=== PATIENT | male | born 1955 | race African-American/Black ===

== ENCOUNTER 2022-11-14 05:21 | Inpatient (IN) | payer MEDICAID ==
[~2022-11-14] VITALS: Ht 188 cm; Wt 75.5 kg
[2022-11-14 06:17] LABS: HEMATOCRIT. 32.6 % (42.0-52.0); HEMOGLOBIN. 10.6 g/dL (14.0-18.0); MEAN CORPUSCULAR VOLUME 86.5 fL (80.0-94.0); MEAN PLATELET VOLUME 6.9 fl (7.4-10.4); PLATELET 696 x1000/uL (130-400); RED BLOOD CELL COUNT 3.77 mill/uL (4.7-6.1); RED CELL DISTRIBUTION WIDTH 20.8 % (11.6-14.6)
[2022-11-14 06:24] LABS: CHLORIDE 103 mEq/L (98-107)
[2022-11-14] MEDS ORDERED: ASPIRIN 81MG TABLET PO ONE (07:45)
[2022-11-14] MEDS ORDERED: FUROSEMIDE 40MG/4ML VIAL IV ONE (07:45)
[2022-11-14 08:53] LABS: PLATELET ESTIMATE INCREASED
[2022-11-14] MEDS ORDERED: CLONIDINE 0.1MG TABLET PO PRN (15:15)
[2022-11-14] MEDS ORDERED: HYDROCODONE/ACETAMINOPHEN 5/325MG TABLET PO PRN (15:15)
[2022-11-14] MEDS ORDERED: ONDANSETRON HCL 4MG/2ML INJ IV PRN (15:15)
[2022-11-14] MEDS ORDERED: ACETAMINOPHEN 325MG TABLET PO PRN ×2 (15:15)
[2022-11-14] MEDS ORDERED: SODIUM CHLORIDE 0.9% 1,000 ML IV SCH (15:15)
[2022-11-14] MEDS ORDERED: MORPHINE SULFATE 2 MG/ML CPJ (NOT FOR IM USE) IV PRN (15:15)
[2022-11-14] MEDS ORDERED: GUAIFENESIN 200MG/10ML SUGAR FREE UDC PO PRN (15:15)
[2022-11-14] MEDS ORDERED: NALOXONE HCL 0.4MG/ML VIAL IV PRN (15:30)
[2022-11-14] MEDS ORDERED: PIPERACILLIN/TAZ 3.375G PREMIX 50 ML IV NR (15:30)
[2022-11-14] MEDS: ENOXAPARIN 40MG/0.4ML SYR SUBCUT SCH (15:50)
[2022-11-14] MEDS ORDERED: CARVEDILOL 12.5MG TABLET PO NR (16:00)
[2022-11-14] MEDS ORDERED: VANCOMYCIN 1,750 MG in DEXT 5% WATER 500 ML IV SCH (17:00)
[2022-11-14 17:12] LABS: T4 FREE 1.46 ng/dL (0.76-1.46)
[2022-11-14] MEDS ORDERED: IPRATROPIUM BROMIDE (0.02%) 0.5MG/2.5ML NEB HHN NR (17:30)
[2022-11-14 19:41] LABS: VITAMIN B12 SERUM 1934 pg/mL (211-911)
[2022-11-14] MEDS: IPRATROPIUM/ALBUTEROL 0.5-3(2.5)MG/3ML NEB HHN PRN (20:57)
[2022-11-14] MEDS ORDERED: FUROSEMIDE 40MG TABLET PO SCH (21:00)
[2022-11-14] MEDS: ATORVASTATIN CALCIUM 40MG TABLET PO SCH (21:18)
[2022-11-14] MEDS: FAMOTIDINE 20MG TABLET PO SCH (21:18)
[2022-11-14] MEDS ORDERED: PIPERACILLIN/TAZOBACTAM 3.375 G in DEXTROSE 5% WATER 50 ML IV SCH (22:00)
[2022-11-14 22:42] LABS: CLARITY URINE CLEAR (CLEAR); COLOR URINE DARK YELLOW (YELLOW); KETONES URINE TRACE (NEGATIVE); LEUKOCYTE ESTERASE URINE NEGATIVE (NEGATIVE); NITRITE URINE NEGATIVE (NEGATIVE); OCCULT BLOOD URINE NEGATIVE (NEGATIVE); PH URINE 6.5 (4.5-8.0); PROTEIN URINE 1+ (NEGATIVE); SPECIFIC GRAVITY URINE 1.034 (1.005-1.030)
[2022-11-14 23:04] LABS: *AMPHETAMINES SCREEN URINE NEGATIVE (NEGATIVE); *BARBITURATES SCREEN URINE NEGATIVE (NEGATIVE); *BENZODIAZEPINES SCREEN URINE NEGATIVE (NEGATIVE); *COCAINE SCREEN URINE NEGATIVE (NEGATIVE); CANNABINOID URINE SCREEN PRESUMTIVE POSITIVE (NEGATIVE); METHADONE URINE SCREEN NEGATIVE (NEGATIVE); OPIATES URINE SCREEN NEGATIVE (NEGATIVE); PHENCYCLIDINE URINE SCREEN NEGATIVE (NEGATIVE)
[2022-11-15 02:00] VITALS: BP 104/72
[2022-11-15] MEDS ORDERED: VANCOMYCIN 750MG PREMIX 150 ML IV SCH (03:00)
[2022-11-15] MEDS: IPRATROPIUM/ALBUTEROL 0.5-3(2.5)MG/3ML NEB HHN PRN (05:13)
[2022-11-15] MEDS: FUROSEMIDE 40MG/4ML VIAL IVP SCH ×2 (07:02→16:19)
[2022-11-15 07:37] LABS: HEMATOCRIT. 30.9 % (42.0-52.0); HEMOGLOBIN. 9.8 g/dL (14.0-18.0); MEAN CORPUSCULAR HEMOGLOBIN 28.1 pg (28.0-32.0); MEAN CORPUSCULAR VOLUME 88.4 fL (80.0-94.0); MEAN PLATELET VOLUME 7.6 fl (7.4-10.4); PLATELET 660 x1000/uL (130-400); RED BLOOD CELL COUNT 3.49 mill/uL (4.7-6.1); RED CELL DISTRIBUTION WIDTH 21.3 % (11.6-14.6)
[2022-11-15 08:00] VITALS: BP 112/82
[2022-11-15 08:19] LABS: CHLORIDE 103 mEq/L (98-107)
[2022-11-15 08:43] VITALS: BP 112/82
[2022-11-15] MEDS ORDERED: ASPIRIN 81MG EC TABLET PO SCH (09:00)
[2022-11-15] MEDS ORDERED: IOHEXOL-350 100 ML BOTTLE ONE (09:13)
[2022-11-15 10:59] LABS: PLATELET ESTIMATE INCREASED
[2022-11-15] MEDS ORDERED: CLOPIDOGREL 75MG TABLET PO SCH (11:45)
[2022-11-15 11:49] VITALS: BP 102/64
[2022-11-15] MEDS: CEFTRIAXONE 1,000 MG in DEXTROSE 5% WATER 50 ML IV SCH (13:03)
[2022-11-15] MEDS: AZITHROMYCIN 500 MG in DEXT 5% WATER 250 ML IV SCH (13:03)
[2022-11-15] MEDS: DILTIAZEM HCL 30MG TABLET PO SCH ×2 (13:04→21:31)
[2022-11-15] MEDS: ENOXAPARIN 40MG/0.4ML SYR SUBCUT SCH (15:14)
[2022-11-15 15:57] VITALS: BP 98/79
[2022-11-15 20:00] VITALS: BP 103/74
[2022-11-15] MEDS: FAMOTIDINE 20MG TABLET PO SCH (21:30)
[2022-11-15] MEDS: ATORVASTATIN CALCIUM 40MG TABLET PO SCH (21:30)
[2022-11-16] VITALS: BP 115/60
[2022-11-16] MEDS: IPRATROPIUM/ALBUTEROL 0.5-3(2.5)MG/3ML NEB HHN PRN (04:21)
[2022-11-16 04:30] VITALS: BP 119/81
[2022-11-16] MEDS: DILTIAZEM HCL 30MG TABLET PO SCH ×3 (06:00→21:49)
[2022-11-16 06:06] LABS: HEMOGLOBIN. 9.8 g/dL (14.0-18.0); MEAN CORPUSCULAR HEMOGLOBIN 28.4 pg (28.0-32.0); MEAN CORPUSCULAR VOLUME 86.8 fL (80.0-94.0); MEAN PLATELET VOLUME 7.8 fl (7.4-10.4); PLATELET 736 x1000/uL (130-400); RED BLOOD CELL COUNT 3.46 mill/uL (4.7-6.1); RED CELL DISTRIBUTION WIDTH 21.7 % (11.6-14.6)
[2022-11-16] MEDS: FUROSEMIDE 40MG/4ML VIAL IVP SCH ×2 (06:21→16:28)
[2022-11-16 08:00] VITALS: BP 106/82
[2022-11-16 09:27] LABS: CHLORIDE 105 mEq/L (98-107)
[2022-11-16] MEDS: AZITHROMYCIN 500 MG in DEXT 5% WATER 250 ML IV SCH (11:32)
[2022-11-16 12:00] VITALS: BP 103/73
[2022-11-16] MEDS: CEFTRIAXONE 1,000 MG in DEXTROSE 5% WATER 50 ML IV SCH (12:54)
[2022-11-16 16:00] VITALS: BP 113/79
[2022-11-16 19:49] LABS: PLATELET ESTIMATE INCREASED
[2022-11-16 20:00] VITALS: BP 128/60
[2022-11-16] MEDS: FAMOTIDINE 20MG TABLET PO SCH (21:49)
[2022-11-16] MEDS: ATORVASTATIN CALCIUM 40MG TABLET PO SCH (21:49)
[2022-11-17] VITALS: BP 119/60
[2022-11-17 04:00] VITALS: BP 107/72
[2022-11-17] MEDS: DILTIAZEM HCL 30MG TABLET PO SCH ×3 (05:42→21:11)
[2022-11-17 07:27] LABS: HEMATOCRIT. 31.9 % (42.0-52.0); HEMOGLOBIN. 10.5 g/dL (14.0-18.0); MEAN CORPUSCULAR HEMOGLOBIN 28.8 pg (28.0-32.0); MEAN CORPUSCULAR VOLUME 87.5 fL (80.0-94.0); MEAN PLATELET VOLUME 8.2 fl (7.4-10.4); PLATELET 787 x1000/uL (130-400); RED BLOOD CELL COUNT 3.65 mill/uL (4.7-6.1); RED CELL DISTRIBUTION WIDTH 21.7 % (11.6-14.6)
[2022-11-17 07:43] LABS: CHLORIDE 103 mEq/L (98-107)
[2022-11-17 07:48] VITALS: BP 139/76
[2022-11-17] MEDS: FUROSEMIDE 40MG/4ML VIAL IVP SCH ×2 (09:14→16:53)
[2022-11-17] MEDS: IPRATROPIUM/ALBUTEROL 0.5-3(2.5)MG/3ML NEB HHN PRN (10:28)
[2022-11-17 11:35] VITALS: BP 121/90
[2022-11-17] MEDS: AZITHROMYCIN 500 MG in DEXT 5% WATER 250 ML IV SCH (12:03)
[2022-11-17] MEDS: CEFTRIAXONE 1,000 MG in DEXTROSE 5% WATER 50 ML IV SCH (12:03)
[2022-11-17 16:03] VITALS: BP 139/85
[2022-11-17] MEDS ORDERED: ZOLPIDEM TARTRATE 5MG TABLET PO PRN (16:15)
[2022-11-17 17:06] LABS: PLATELET ESTIMATE INCREASED
[2022-11-17 20:00] VITALS: BP 101/76
[2022-11-17] MEDS: FAMOTIDINE 20MG TABLET PO SCH (20:43)
[2022-11-17] MEDS: ATORVASTATIN CALCIUM 40MG TABLET PO SCH (20:43)
[2022-11-18] VITALS: BP 114/79
[2022-11-18] MEDS: IPRATROPIUM/ALBUTEROL 0.5-3(2.5)MG/3ML NEB HHN SCH ×2 (02:10→16:38)
[2022-11-18 04:00] VITALS: BP 102/78
[2022-11-18] MEDS: IPRATROPIUM/ALBUTEROL 0.5-3(2.5)MG/3ML NEB HHN PRN (05:10)
[2022-11-18] MEDS: DILTIAZEM HCL 30MG TABLET PO SCH ×4 (05:35→21:32)
[2022-11-18 06:56] LABS: INR 1.2
[2022-11-18 07:05] LABS: HEMATOCRIT. 30.9 % (42.0-52.0); MEAN CORPUSCULAR HEMOGLOBIN 28.4 pg (28.0-32.0); MEAN PLATELET VOLUME 8.3 fl (7.4-10.4); PLATELET 793 x1000/uL (130-400); RED BLOOD CELL COUNT 3.51 mill/uL (4.7-6.1); RED CELL DISTRIBUTION WIDTH 21.4 % (11.6-14.6)
[2022-11-18 07:24] LABS: CHLORIDE 102 mEq/L (98-107)
[2022-11-18 08:00] VITALS: BP 110/68
[2022-11-18] MEDS: FUROSEMIDE 40MG/4ML VIAL IVP SCH ×2 (09:42→17:15)
[2022-11-18] MEDS ORDERED: SODIUM BICARBONATE 4% (2.4MEQ) 5ML VIAL IV ONE (09:54)
[2022-11-18 11:37] LABS: PLATELET ESTIMATE INCREASED
[2022-11-18 12:00] VITALS: BP 113/84
[2022-11-18] MEDS: AZITHROMYCIN 500 MG in DEXT 5% WATER 250 ML IV SCH (12:43)
[2022-11-18] MEDS: CEFTRIAXONE 1,000 MG in DEXTROSE 5% WATER 50 ML IV SCH (14:34)
[2022-11-18 16:00] VITALS: BP 108/65
[2022-11-18 20:00] VITALS: BP 89/46
[2022-11-18] MEDS: FAMOTIDINE 20MG TABLET PO SCH (21:41)
[2022-11-18] MEDS: ATORVASTATIN CALCIUM 40MG TABLET PO SCH (21:41)
[2022-11-19] VITALS: BP 140/60
[2022-11-19] MEDS: IPRATROPIUM/ALBUTEROL 0.5-3(2.5)MG/3ML NEB HHN SCH ×3 (00:39→16:36)
[2022-11-19 04:00] VITALS: BP 101/73
[2022-11-19] MEDS: DILTIAZEM HCL 30MG TABLET PO SCH ×2 (06:00→12:56)
[2022-11-19] MEDS: FUROSEMIDE 40MG/4ML VIAL IVP SCH (06:48)
[2022-11-19 07:18] LABS: HEMATOCRIT. 31.3 % (42.0-52.0); HEMOGLOBIN. 10.2 g/dL (14.0-18.0); MEAN CORPUSCULAR HEMOGLOBIN 28.3 pg (28.0-32.0); MEAN CORPUSCULAR VOLUME 86.9 fL (80.0-94.0); MEAN PLATELET VOLUME 8.6 fl (7.4-10.4); PLATELET 787 x1000/uL (130-400); RED BLOOD CELL COUNT 3.61 mill/uL (4.7-6.1); RED CELL DISTRIBUTION WIDTH 21.7 % (11.6-14.6)
[2022-11-19 07:23] LABS: CHLORIDE 101 mEq/L (98-107)
[2022-11-19 08:00] VITALS: BP 100/72
[2022-11-19] MEDS: AZITHROMYCIN 500 MG in DEXT 5% WATER 250 ML IV SCH (11:24)
[2022-11-19 12:00] VITALS: BP 100/67
[2022-11-19] MEDS: CEFTRIAXONE 1,000 MG in DEXTROSE 5% WATER 50 ML IV SCH (12:55)
[2022-11-19 13:17] LABS: PLATELET ESTIMATE INCREASED
[2022-11-19] MEDS ORDERED: OSELTAMIVIR 75MG CAPSULE PO SCH (21:00)
[2022-11-24] MEDS ORDERED: CARV12.545 PO (10:02)
[2022-11-24] MEDS ORDERED: ASPI-1406 PO (10:02)
[2022-11-24] MEDS ORDERED: SPIR25TA6 PO (10:02)
[2022-11-24] MEDS ORDERED: EMPA25TA PO (10:02)
[2022-11-24] MEDS ORDERED: CHOL400C8 (10:02)
[2022-11-24] MEDS ORDERED: METO-396 PO (10:02)
[2022-11-24] MEDS ORDERED: MECL-159 PO (10:02)
[2022-11-24] MEDS ORDERED: IMAT400T7 PO (10:02)
[2022-11-24] MEDS ORDERED: METH-773 PO (10:02)
[2022-11-24] MEDS ORDERED: FURO40TA5 PO (11:18)
[2022-11-24] MEDS ORDERED: DILT60TA35 MT (11:18)
[2022-11-24] MEDS ORDERED: GUAI200T5 PO (11:18)
[2022-11-24] MEDS ORDERED: CLOP75TA33 PO (11:18)
== END 2022-11-19 17:05 | disposition home or self-care (01) | DRG 720 ==
LOC: ER 05:21 → 8WST 11:02 → ENRESERV 22:18
PROVIDERS: ADMIT Internal Medicine; ATTEND Internal Medicine
PROC: 0W993ZZ Drainage of Right Pleural Cavity, Percutaneous Approach (ICD-10-PCS; principal; 2022-11-18)
DX: A41.9 Sepsis, unspecified organism (principal); J96.01 Acute respiratory failure with hypoxia; I50.21 Acute systolic (congestive) heart failure; E44.0 Moderate protein-calorie malnutrition; I31.9 Disease of pericardium, unspecified; C92.10 Chronic myeloid leukemia, BCR/ABL-positive, not having achieved remission; J18.9 Pneumonia, unspecified organism; I47.1 Supraventricular tachycardia; D63.8 Anemia in other chronic diseases classified elsewhere; I11.0 Hypertensive heart disease with heart failure; Z20.822 Contact with and (suspected) exposure to COVID-19; D75.839 Thrombocytosis, unspecified; J44.0 Chronic obstructive pulmonary disease with (acute) lower respiratory infection; I48.91 Unspecified atrial fibrillation; E78.5 Hyperlipidemia, unspecified; I25.10 Atherosclerotic heart disease of native coronary artery without angina pectoris; Z87.891 Personal history of nicotine dependence; Z95.1 Presence of aortocoronary bypass graft; Z95.2 Presence of prosthetic heart valve; Z91.119 Patient's noncompliance with dietary regimen due to unspecified reason; Z91.14 Patient's other noncompliance with medication regimen
CPT/HCPCS: 32555; 36415; 71045; 71275; 80048; 80053; 80061; 80305; 81003; 82040; 82607; 82746; 83605; 83615; 83880; 84145; 84439; 84443; 84484; 85025; 85379; 85651; 87426; 88108; 93005; 93306; 93970; 94640; 97162; 97166; 97530; 99285; C1893; J0456; J0696; J1650; J1940; J2543; J3370; J3490; J7060; Q9967